=== PATIENT | male | born 1985 | race African-American/Black ===

== ENCOUNTER 2024-07-06 21:54 | Emergency (ER) | payer MEDICAID ==
[~2024-07-06] VITALS: Ht 185.4 cm; Wt 106.0 kg
[2024-07-06 22:00] VITALS: O2SAT 98
[2024-07-06 22:28] VITALS: BP 121/78; PULSE 118; RESP 20; TEMP 98.2; O2SAT 99
[2024-07-06 23:07] LABS: BASOPHILS % 0.6 % (0.0-2.0); DIFFERENTIAL COMMENT 0; HEMATOCRIT. 35.1 % (42.0-52.0); HEMOGLOBIN. 11.6 g/dL (14.0-18.0); LYMPHOCYTES % 22.3 % (20.0-50.0); MEAN CORPUSCULAR HEMOGLOBIN 28.5 pg (28.0-32.0); MEAN CORPUSCULAR VOLUME 86.5 fL (80.0-94.0); MEAN PLATELET VOLUME 11.6 fl (7.4-10.4); MONOCYTES % 10.7 % (2.0-8.0); NEUTROPHILS % 66.4 % (40.0-76.0); PLATELET 101 x1000/uL (130-400); RED BLOOD CELL COUNT 4.06 mill/uL (4.7-6.1); RED CELL DISTRIBUTION WIDTH 12.3 % (11.6-14.6); WHITE BLOOD COUNT 10.3 x1000/uL (4.5-11.0)
[2024-07-06 23:17] LABS: CHLORIDE 95 mEq/L (98-107); POTASSIUM 3.6 mEq/L (3.5-5.1); SODIUM 128 mEq/L (136-145)
[2024-07-06 23:18] LABS: CALCIUM 9.4 mg/dL (8.7-10.4); CARBON DIOXIDE 24 mEq/L (21-32)
[2024-07-06 23:23] LABS: CREATININE 1.7 mg/dL (0.6-1.3); GLUCOSE 110 mg/dL (70-105); TROPONIN I HIGH SENSITIVITY 43 ng/L (3.0-53); UREA NITROGEN BLOOD 19 mg/dL (9-23)
[2024-07-08] MEDS ORDERED: CEFP100S5 MT (18:19)
== END 2024-07-07 03:13 | disposition left against medical advice (07) ==
LOC: ER 21:54
DX: R06.02 Shortness of breath (principal); R42 Dizziness and giddiness; Z53.21 Procedure and treatment not carried out due to patient leaving prior to being seen by health care provider
CPT/HCPCS: 36415; 71045; 80048; 84484; 85025; 93005

== ENCOUNTER 2024-07-08 12:40 | Emergency (ER) | payer MEDICAID ==
[~2024-07-08] VITALS: Ht 185.4 cm; Wt 100.0 kg
[2024-07-08 12:54] VITALS: O2SAT 99
[2024-07-08 13:20] LABS: BASOPHILS % 1.1 % (0.0-2.0); DIFFERENTIAL COMMENT 0; EOSINOPHILS % 0.1 % (0.0-5.0); HEMATOCRIT. 33.8 % (42.0-52.0); LYMPHOCYTES % 15.2 % (20.0-50.0); MEAN CORPUSCULAR HEMOGLOBIN 28.4 pg (28.0-32.0); MEAN CORPUSCULAR HGB CONC 32.5 g/dL (31.0-37.0); MEAN CORPUSCULAR VOLUME 87.5 fL (80.0-94.0); MEAN PLATELET VOLUME 11.7 fl (7.4-10.4); MONOCYTES % 10.2 % (2.0-8.0); NEUTROPHILS % 73.4 % (40.0-76.0); PLATELET 138 x1000/uL (130-400); RED BLOOD CELL COUNT 3.86 mill/uL (4.7-6.1); RED CELL DISTRIBUTION WIDTH 12.4 % (11.6-14.6); WHITE BLOOD COUNT 9.4 x1000/uL (4.5-11.0)
[2024-07-08 13:22] LABS: POTASSIUM 4.2 mEq/L (3.5-5.1)
[2024-07-08 13:23] LABS: CALCIUM 9.4 mg/dL (8.7-10.4)
[2024-07-08 13:28] LABS: CREATININE 1.6 mg/dL (0.6-1.3)
[2024-07-08 14:56] LABS: CLARITY URINE CLEAR (CLEAR); COLOR URINE DARK YELLOW (YELLOW); GLUCOSE URINE NEGATIVE (NEGATIVE); KETONES URINE TRACE (NEGATIVE); LEUKOCYTE ESTERASE URINE TRACE (NEGATIVE); NITRITE URINE NEGATIVE (NEGATIVE); OCCULT BLOOD URINE 2+ (NEGATIVE); PROTEIN URINE 2+ (NEGATIVE); SPECIFIC GRAVITY URINE 1.019 (1.005-1.030)
[2024-07-08 15:06] LABS: BACTERIA URINE 1+; RBC URINE 0-2 /hpf (0-2); SQUAMOUS EPITHELIAL CELL URINE NONE SEEN /lpf (RARE/1+); YEAST URINE NONE SEEN
[2024-07-08 15:52] VITALS: PULSE 89; RESP 20
[2024-07-08] MEDS: ALBUTEROL (0.5%) 2.5MG/0.5ML NEB HHN ONE (15:52)
[2024-07-08 16:11] LABS: TROPONIN I HIGH SENSITIVITY 16 ng/L (3.0-53)
[2024-07-08 16:12] LABS: ALANINE AMINOTRANSFERASE 158 IU/L (10-49)
[2024-07-08 16:13] LABS: ALBUMIN 4.5 g/dL (3.2-4.8); ASPARTATE AMINOTRANSFERASE 159 IU/L (<34); BILIRUBIN DIRECT 0.8 mg/dL (<=3.0); BILIRUBIN TOTAL 1.5 mg/dL (0.1-1.0); PROTEIN TOTAL 7.7 g/dL (6.0-8.3)
[2024-07-08] MEDS ORDERED: IOHEXOL-350 100 ML BOTTLE ONE ×2 (17:17→23:23)
[2024-07-08 17:25] LABS: ETHANOL BLOOD < 10 mg/dL (<10); INR 1.1; PARTIAL THROMBOPLASTIN TIME 30.4 sec (23.4-31.0); PROTHROMBIN TIME 12.6 sec (9.6-11.0)
[2024-07-08] MEDS: CEFTRIAXONE 1GM/50ML 50 ML IV ONE (17:40)
[2024-07-08] MEDS: SODIUM CHLORIDE 0.9% 1,000 ML IV ONE (17:40)
[2024-07-08] MEDS ORDERED: CEFP100S5 MT (18:19)
[2024-07-08 18:55] VITALS: BP 104/73; PULSE 87; RESP 18; TEMP 37.11408; O2SAT 99
[2024-07-09 11:06] LABS: *AMPHETAMINES SCREEN URINE NEGATIVE (NEGATIVE); *BARBITURATES SCREEN URINE NEGATIVE (NEGATIVE); *BENZODIAZEPINES SCREEN URINE NEGATIVE (NEGATIVE); *COCAINE SCREEN URINE NEGATIVE (NEGATIVE)
[2024-07-09 11:07] LABS: CANNABINOID URINE SCREEN PRESUMPTIVE POSITIVE (NEGATIVE); ECSTASY MDMA SCREEN URINE NEGATIVE (NEGATIVE); METHADONE URINE SCREEN NEGATIVE (NEGATIVE); OPIATES URINE SCREEN NEGATIVE (NEGATIVE); PHENCYCLIDINE URINE SCREEN NEGATIVE (NEGATIVE)
== END 2024-07-08 19:00 | disposition home or self-care (01) ==
LOC: ER 12:40
DX: N39.0 Urinary tract infection, site not specified (principal); N17.9 Acute kidney failure, unspecified; R06.02 Shortness of breath; I49.9 Cardiac arrhythmia, unspecified
CPT/HCPCS: 80076; 80305; 80048; 81003; 80320; 83880; 83605; 83735; 84100; 85025; 85379; 85610; 85730; 87086; 84484; 36415; 71045; 71275; 94640; 93005; 99285; Q9967; J0696; Z7610 ×3; J7030; G0480

== ENCOUNTER 2024-09-15 15:58 | Emergency (ER) | payer MEDICAID ==
[~2024-09-15] VITALS: Ht 185.4 cm; Wt 116.0 kg
[~2024-09-15 15:58] MED LIST: CEFP100S5 MT
[2024-09-15 16:36] VITALS: TEMP 98.6; O2SAT 99
[2024-09-15 17:50] LABS: CLARITY URINE CLEAR (CLEAR); COLOR URINE YELLOW (YELLOW); GLUCOSE URINE NEGATIVE (NEGATIVE); KETONES URINE NEGATIVE (NEGATIVE); LEUKOCYTE ESTERASE URINE NEGATIVE (NEGATIVE); NITRITE URINE NEGATIVE (NEGATIVE); OCCULT BLOOD URINE NEGATIVE (NEGATIVE); PH URINE 5.5 (4.5-8.0); PROTEIN URINE NEGATIVE (NEGATIVE); UROBILINOGEN URINE 0.2 E.U./dL (0.2-1.0)
[2024-09-15] MEDS ORDERED: DOXY100C74 MT (18:33)
[2024-09-15] MEDS: DOXYCYCLINE HYCLATE 100MG CAPSULE PO ONE (18:50)
[2024-09-15] MEDS: CEFTRIAXONE SODIUM 500MG VIAL IM ONE (18:50)
[2024-09-15 18:56] VITALS: BP 164/98; PULSE 95; RESP 15; O2SAT 100
== END 2024-09-15 18:59 | disposition home or self-care (01) ==
LOC: ER 15:58
DX: N49.2 Inflammatory disorders of scrotum (principal)
CPT/HCPCS: 99285; 93976; 81003; 76870; 96372; J0696

== ENCOUNTER 2024-10-08 18:12 | Emergency (ER) | payer MEDICAID ==
[~2024-10-08] VITALS: Ht 185.4 cm; Wt 112.0 kg
[~2024-10-08 18:12] MED LIST changes: +DOXY100C74 MT
[2024-10-08 18:29] VITALS: O2SAT 99
[2024-10-08] MEDS: KETOROLAC 15MG/ML VIAL IM ONE (22:25)
[2024-10-08] MEDS: KETOROLAC 15MG/ML VIAL IM NR (22:28)
[2024-10-08] MEDS ORDERED: NAPR-1176 MT (22:31)
[2024-10-08] MEDS ORDERED: LIDO700A15 TP (22:31)
[2024-10-08] MEDS ORDERED: CYCL5TAB3 MT (22:47)
[2024-10-08 23:14] VITALS: BP 133/82; PULSE 78; RESP 16; TEMP 36.66960; O2SAT 99
== END 2024-10-08 23:23 | disposition home or self-care (01) ==
LOC: ER 18:12
DX: M25.511 Pain in right shoulder (principal); M54.2 Cervicalgia; V89.0XXA Person injured in unspecified motor-vehicle accident, nontraffic, initial encounter; Y93.89 Activity, other specified; Y92.89 Other specified places as the place of occurrence of the external cause; Y99.8 Other external cause status
CPT/HCPCS: 99283; 73030; 96372; J1885

== ENCOUNTER 2024-11-22 21:55 | Emergency (ER) | payer MEDICAID ==
[~2024-11-22] VITALS: Ht 188 cm; Wt 118.0 kg
[~2024-11-22 21:55] MED LIST changes: +CYCL5TAB3 MT; +LIDO700A15 TP; +NAPR-1176 MT
[2024-11-22 21:57] VITALS: O2SAT 99
[2024-11-22 22:02] VITALS: BP 102/72; PULSE 68; RESP 18; TEMP 98; O2SAT 100
[2024-11-22] MEDS: EPINEPHRINE 1:1000 1 MG/ML AMP IM ONE (22:39)
[2024-11-22] MEDS: DIPHENHYDRAMINE 50MG/ML VIAL IM ONE (22:40)
[2024-11-22] MEDS: DEXAMETHASONE 10 MG/ML VIAL IM ONE (22:40)
[2024-11-23] MEDS ORDERED: P20 MT (00:53)
[2024-11-23] MEDS ORDERED: EPIN0.3P3 IM (00:54)
[2024-11-23] MEDS ORDERED: DIPH50CA41 MT (00:54)
== END 2024-11-23 01:05 | disposition home or self-care (01) ==
LOC: ER 21:55
DX: T63.441A Toxic effect of venom of bees, accidental (unintentional), initial encounter (principal); Z79.1 Long term (current) use of non-steroidal anti-inflammatories (NSAID); X58.XXXA Exposure to other specified factors, initial encounter; Y93.89 Activity, other specified; Y92.89 Other specified places as the place of occurrence of the external cause; Y99.8 Other external cause status
CPT/HCPCS: 99284; 96372; J1100; J1200; J3490

== ENCOUNTER 2025-01-01 04:04 | Emergency (ER) | payer MEDICAID, OTHER ==
[~2025-01-01] VITALS: Ht 188 cm; Wt 118.0 kg
[~2025-01-01 04:04] MED LIST changes: +DIPH50CA41 MT; +EPIN0.3P3 IM; +P20 MT
[2025-01-01 04:31] VITALS: O2SAT 100
[2025-01-01] MEDS ORDERED: ISOP30DR11 EACH EAR (05:07)
[2025-01-01] MEDS ORDERED: OFLO5DRO4 RIGHT EAR (05:44)
[2025-01-01 05:56] VITALS: BP 124/70; PULSE 72; RESP 18; TEMP 36.4; O2SAT 100
== END 2025-01-01 05:58 | disposition home or self-care (01) ==
LOC: ER 04:04
DX: H61.21 Impacted cerumen, right ear (principal); Z79.1 Long term (current) use of non-steroidal anti-inflammatories (NSAID)
CPT/HCPCS: 69210; 99284